=== PATIENT | female | born 1975 | race Caucasian/White ===

== ENCOUNTER 2019-01-29 13:28 | Outpatient (CLI) | payer OTHER ==
[~2019-01-29 13:28] MED LIST: NAPROXEN SODIU550 MG PO
== END 2019-01-30 06:13 | disposition home or self-care (01) ==
LOC: MAMO-SONO 13:28
DX: Z12.31 Encounter for screening mammogram for malignant neoplasm of breast (principal); Z87.898 Personal history of other specified conditions; N60.11 Diffuse cystic mastopathy of right breast; N60.12 Diffuse cystic mastopathy of left breast; N85.2 Hypertrophy of uterus